=== PATIENT | female | born 1975 | race Caucasian/White ===

== ENCOUNTER → 2016-09-10 | Outpatient (CLI) | payer BC | LOC: RAD 11:06 | PROVIDERS: ATTEND Family Medicine | DX: Z12.31 Encounter for screening mammogram for malignant neoplasm of breast (principal) ==

== ENCOUNTER → 2016-09-21 | Outpatient (CLI) | payer SELFPAY ==
[~2016-09-21] MED LIST: ALB.5NB20 HHN; ALKA-SELTZER B324 MG PO; DM/P295L13 PO
--- NOTE | 2016-09-21 20:36 | Diagnostic Imaging Report ---
INDICATION: Recall from screening. Unilateral right diagnostic mammography is performed. Concomitant targeted ultrasound was performed. COMPARISON: Baseline study 09/10/2016. The current study was also evaluated with a Computer Aided Detection (CAD) system. FINDINGS: Spot compression views showed mildly prominent right subareolar ducts. These lacked any intraluminal filling defect on ultrasound. There is no solid mass lesion demonstrated. There is no suspicious calcification. IMPRESSION: 1. Additional mammographic and sonographic evaluation of the right breast is negative for malignancy. Followup in one year. ACR BI-RADS Category 2: Benign findings. Result letter will be mailed to the patient. Note: At least 10% of breast cancer is not imaged by mammography. Dictated by: Dictated on workstation # [id number]
--- NOTE | 2016-09-21 20:39 | Diagnostic Imaging Report ---
INDICATION: Recall from screening. Multiple real-time grayscale images are obtained through the subareolar right breast. I scanned the patient after the cardiac cath technologist scanned the patient. Small subareolar ducts are identified with no intraluminal filling defect. Tiny cysts are noted at 12:00 subareolar. No solid mass or worrisome lesion was identified. IMPRESSION: 1. Benign sonographic findings. Dictated by: Dictated on workstation # [id number]
== END ==
LOC: RAD 14:00
PROVIDERS: ATTEND Family Medicine
DX: N60.41 Mammary duct ectasia of right breast (principal)
CPT/HCPCS: 76642; G0206